=== PATIENT | female | born 1970 | race Caucasian/White ===

== ENCOUNTER 2020-06-26 17:59 | Emergency (ER) | payer MEDICARE, OTHER ==
[~2020-06-26] VITALS: Ht 157.5 cm; Wt 67.9 kg
[2020-06-26] MEDS ORDERED: DEXAMETHASONE SOD PHOS 4 MG/ML VIAL. IVP ONE (18:45)
[2020-06-26] MEDS ORDERED: IV NORMAL SALINE 1,000ML 1,000 ML IV ONE (18:45)
[2020-06-26 19:10] LABS: BASO % 1 % (0-3); EOS # 0.1 x10^3/uL (0.0-0.7); EOS % 2 % (0-3); HEMOGLOBIN 13.4 g/dL (12.0-15.5); LYMPH # 1.4 x10^3/uL (1.0-4.8); LYMPH % 48 % (24-48); MEAN CORPUSCULAR HEMOGLOBIN 31 pg (25-35); MEAN CORPUSCULAR HGB CONC 34 g/dL (31-37); MEAN CORPUSCULAR VOLUME 92 fL (79-100); MONO # 0.3 x10^3/uL (0.0-1.1); MONO % 11 % (0-9); NEUT # 1.1 x10^3uL (1.8-7.7); NEUT % 38 % (31-73); PLATELET COUNT 134 x10^3/uL (140-400); RED BLOOD COUNT 4.34 x10^6/uL (3.50-5.40); RED CELL DISTRIBUTION WIDTH 12.8 % (11.5-14.5); WHITE BLOOD COUNT 2.9 x10^3/uL (4.0-11.0)
[2020-06-26 19:19] LABS: ANION GAP 9 (6-14); BLOOD UREA NITROGEN 22 mg/dL (7-20); BUN/CREATININE RATIO 18 (6-20); CALCIUM 8.3 mg/dL (8.5-10.1); CARBON DIOXIDE 26 mmol/L (21-32); CHLORIDE 106 mmol/L (98-107); CREATININE 1.2 mg/dL (0.6-1.0); GFR 47.9; GLUCOSE 90 mg/dL (70-99); POTASSIUM 3.8 mmol/L (3.5-5.1); SODIUM 141 mmol/L (136-145)
[2020-06-26 19:30] LABS: ALBUMIN 3.4 g/dL (3.4-5.0); ALBUMIN/GLOBULIN RATIO 1.1 (1.0-1.7); ALK PHOS 72 U/L (46-116); ALT (SGPT) 23 U/L (14-59); AST (SGOT) 19 U/L (15-37); MAGNESIUM 2.1 mg/dL (1.8-2.4); TOTAL BILIRUBIN 0.1 mg/dL (0.2-1.0); TOTAL PROTEIN 6.4 g/dL (6.4-8.2)
[2020-06-26] MEDS ORDERED: IOHEXOL 350 MG/ML 100 ML VIAL. IV ONE (20:00)
--- NOTE | 2020-06-26 21:37 | RAD ---
Examination: Ultrasound left upper extremity venous duplex HISTORY: History of elevated d-dimer, paresthesias COMPARISON: None available TECHNIQUE: Grayscale, color Doppler 2-D, spectral waveforms of the left upper extremity venous system were performed FINDINGS: The visualized left internal jugular vein, subclavian vein, axillary vein, basilic vein, cephalic vein, brachial vein, radial, ulnar veins are patent. IMPRESSION: No evidence of deep venous thrombosis left upper extremity venous system. Electronically signed by: Thaddeus Hernandez MD (06/26/2020 9:34 PM) [id number]
--- NOTE | 2020-06-26 21:39 | RAD ---
Examination: Right Lower Extremity Venous Doppler Ultrasound History: Elevated d-dimer, paresthesias Comparison: None available Procedure: Barnett scale, color flow 2D and spectal waveform analysis images are obtained with and without compression in the area of the common femoral vein, superficial femoral vein - femoral vein junction, main femoral vein (superficial femoral vein) and popliteal vein. Veins of the proximal calf are also imaged. Findings: There is normal duplex flow, color flow and compressibility of all visualized vein segments. No evidence of deep venous thrombus is present. Impression: No evidence of DVT in the right lower extremity venous system. Electronically signed by: Thaddeus Hernandez MD (06/26/2020 9:36 PM) [id number]
--- NOTE | 2020-06-26 21:42 | PHYS DOC ---
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 Past Surgical History: Hysterectomy, Other Additional Past Surgical Histo: ULCER SUREGY WITH LAP Alcohol Use: Occasionally General Adult EDM: Chief Complaint: MULTIPLE COMPLAINTS HPI: HPI: Patient is a [age] year old [sex] who presents with [] Review of Systems: Review of Systems: Constitutional: Denies fever or chills Eyes: Denies redness or eye pain HENT: Denies nasal congestion or sore throat Respiratory: Denies cough or shortness of breath Cardiovascular: Denies chest pain or palpitations GI: Denies abdominal pain, nausea, or vomiting : Denies dysuria or hematuria Musculoskeletal: Denies back pain or joint pain Integument: Denies rash or skin lesions Neurologic: Denies headache, focal weakness or sensory changes Complete systems were reviewed and found to be within normal limits, except as documented in this note. Current Medications: Current Meds: Current Medications Medications (Trade) Dose Ordered Sig/Sallie Start Time Stop Time Status Last Admin Dose Admin Dexamethasone Sodium Phosphate (Decadron) 10 mg 1X ONCE 06/26/20 18:45 06/26/20 18:49 DC 06/26/20 19:45 10 MG Iohexol (Omnipaque 350 Mg/ml) 100 ml 1X ONCE 06/26/20 20:00 06/26/20 20:07 DC 06/26/20 21:33 100 ML Sodium Chloride 1,000 ml @ 1,000 mls/hr 1X ONCE 06/26/20 18:45 06/26/20 19:44 DC 06/26/20 19:39 1,000 MLS/HR Allergies: Allergies: Allergies Coded Allergies Type Severity Reaction Last Updated Verified No Known Drug Allergies 06/26/20 No Physical Exam: PE: Constitutional: Well developed, well nourished, no acute distress, non-toxic appearance HENT: Normocephalic, atraumatic Eyes: PERRL, EOMI, conjunctiva normal, no discharge Neck: Normal range of motion, no tenderness, supple Lungs & Thorax: No respiratory distress, equal chest rise and fall Abdomen: Soft, no tenderness Skin: Warm, dry, no erythema, no rash Back: No tenderness, no CVA tenderness Extremities: No tenderness, ROM intact, no edema Neurologic: Alert and oriented X 3, normal motor function, normal sensory function, no focal deficits noted Psychologic: Affect normal, judgment normal Current Patient Data: Labs: Laboratory Tests Test 06/26/20 18:40 White Blood Count 2.9 x10^3/uL (4.0-11.0) L Red Blood Count 4.34 x10^6/uL (3.50-5.40) Hemoglobin 13.4 g/dL (12.0-15.5) Hematocrit 40.0 % (36.0-47.0) Mean Corpuscular Volume 92 fL (79-100) Mean Corpuscular Hemoglobin 31 pg (25-35) Mean Corpuscular Hemoglobin Concent 34 g/dL (31-37) Red Cell Distribution Width 12.8 % (11.5-14.5) Platelet Count 134 x10^3/uL (140-400) L Neutrophils (%) (Auto) 38 % (31-73) Lymphocytes (%) (Auto) 48 % (24-48) Monocytes (%) (Auto) 11 % (0-9) H Eosinophils (%) (Auto) 2 % (0-3) Basophils (%) (Auto) 1 % (0-3) Neutrophils # (Auto) 1.1 x10^3uL (1.8-7.7) L Lymphocytes # (Auto) 1.4 x10^3/uL (1.0-4.8) Monocytes # (Auto) 0.3 x10^3/uL (0.0-1.1) Eosinophils # (Auto) 0.1 x10^3/uL (0.0-0.7) Basophils # (Auto) 0.0 x10^3/uL (0.0-0.2) Prothrombin Time 10.1 SEC (9.4-11.4) Prothrombin Time INR 1.0 (0.9-1.1) Activated Partial Thromboplast Time 26 SEC (23-33) D-Dimer (Vanessa) 0.54 mg/L (0.00-0.50) H Sodium Level 141 mmol/L (136-145) Potassium Level 3.8 mmol/L (3.5-5.1) Chloride Level 106 mmol/L (98-107) Carbon Dioxide Level 26 mmol/L (21-32) Anion Gap 9 (6-14) Blood Urea Nitrogen 22 mg/dL (7-20) H Creatinine 1.2 mg/dL (0.6-1.0) H Estimated GFR (Cockcroft-Gault) 47.9 BUN/Creatinine Ratio 18 (6-20) Glucose Level 90 mg/dL (70-99) Calcium Level 8.3 mg/dL (8.5-10.1) L Magnesium Level 2.1 mg/dL (1.8-2.4) Total Bilirubin 0.1 mg/dL (0.2-1.0) L Aspartate Amino Transferase (AST) 19 U/L (15-37) Alanine Aminotransferase (ALT) 23 U/L (14-59) Alkaline Phosphatase 72 U/L (46-116) Creatine Kinase 67 U/L (26-192) Creatine Kinase MB (Mass) 0.6 ng/mL (0.0-3.6) Creatine Kinase MB Relative Index % (0-4) Troponin I Quantitative < 0.017 ng/mL (0-0.055) Total Protein 6.4 g/dL (6.4-8.2) Albumin 3.4 g/dL (3.4-5.0) Albumin/Globulin Ratio 1.1 (1.0-1.7) Vital Signs: Vital Signs Date Time Temp Pulse Resp B/P (MAP) Pulse Ox O2 Delivery O2 Flow Rate FiO2 06/26/20 18:00 98.4 70 18 122/73 (89) 99 Room Air EKG: EKG: @1957 Sinus bradycardia at 58bpm, NO ST elevation, QRS 88ms, QT/QTc 434/430ms, nonspecific t wave inversion V3. Radiology/Procedures: Radiology/Procedures: PROCEDURE: VENOUS UPPER EXTREMITY LEFT Examination: Ultrasound left upper extremity venous duplex HISTORY: History of elevated d-dimer, paresthesias COMPARISON: None available TECHNIQUE: Grayscale, color Doppler 2-D, spectral waveforms of the left upper extremity venous system were performed FINDINGS: The visualized left internal jugular vein, subclavian vein, axillary vein, basilic vein, cephalic vein, brachial vein, radial, ulnar veins are patent. IMPRESSION: No evidence of deep venous thrombosis left upper extremity venous system. Electronically signed by: Thaddeus Hernandez MD (06/26/2020 9:34 PM) [id number] PROCEDURE: VENOUS LOWER EXTREMITY RIGHT Examination: Right Lower Extremity Venous Doppler Ultrasound History: Elevated d-dimer, paresthesias Comparison: None available Procedure: Barnett scale, color flow 2D and spectal waveform analysis images are obtained with and without compression in the area of the common femoral vein, superficial femoral vein - femoral vein junction, main femoral vein (superficial femoral vein) and popliteal vein. Veins of the proximal calf are also imaged. Findings: There is normal duplex flow, color flow and compressibility of all visualized vein segments. No evidence of deep venous thrombus is present. Impression: No evidence of DVT in the right lower extremity venous system. Electronically signed by: Thaddeus Hernandez MD (06/26/2020 9:36 PM) [id number] PROCEDURE: CT ANGIOGRAPHY CHEST Examination: CT angiography chest HISTORY: History of shortness of breath, elevated d-dimer COMPARISON: None available TECHNIQUE: Axial CT angiographic images of chest were performed with IV contrast. Coronal and sagittal reformats are performed Exposure: One or more of the following individualized dose reduction techniques were utilized for this examination: 1. Automated exposure control 2. Adjustment of the mA and/or kV according to patient size 3. Use of iterative reconstruction technique FINDINGS: The central airways are patent. The heart size grossly appears unremarkable. The ascending aorta measures 3.5 cm in transverse dimension. There is no evidence of filling defect identified in the main pulmonary arteries and the right and left main pulmonary arteries and the visualized lobar, segmental branches of the pulmonary arteries. Mild bibasilar lung airspace opacities likely atelectasis or infiltrates. The visualized liver, spleen, grossly appears unremarkable. Mild degenerative changes thoracic spine. IMPRESSION: 1. No evidence of pulmonary embolism. 2. Mild bibasilar lung atelectasis or infiltrates. Electronically signed by: Thaddeus Hernandez MD (06/26/2020 10:07 PM) [email or web address] Course & Med Decision Making: Course & Med Decision Making Pertinent Labs and Imaging studies reviewed. (See chart for details) Patient stable for discharge with outpatient follow-up with PCP/pain management. Discussed findings and plan with patient, who acknowledges understanding and agreement. COVID-19 CRITERIA: The patient was evaluated during the global COVID-19 pandemic, and that diagnosis was suspected/considered upon their initial presentation. Their evaluation, treatment and testing was consistent with current guidelines for patients who present with complaints or symptoms that may be related to COVID-19. Dragon Disclaimer: Dragon Disclaimer: This electronic medical record was generated, in whole or in part, using a voice recognition dictation system. Departure Departure: Impression: Primary Impression: Arm paresthesia, left Additional Impressions: Paresthesia of right leg COVID-19 Disposition: 01 DC HOME SELF CARE/HOMELESS Condition: STABLE Referrals: PCP,NO (PCP) Patient Instructions: Paresthesia, [id number] Additional Instructions: Please follow with your doctor and/or it desktop support specialist for further evaluation and treatment. Dr. Elvis Xiong (pain management) Address: [address] [place] [address] [place] [address] You have been tested for or diagnosed with COVID-19. It is an infection caused by a new type of coronavirus. COVID-19 will cause cold-like or mild flu symptoms in most. It can cause more severe symptoms like problems breathing in some. There is no treatment for COVID-19. The body will clear the infection over time. Self-care will help to ease discomfort. Steps to Take: Self-Care Rest as needed. Healthy habits may help you feel better. Steps include: Choose healthy foods including fruits and vegetables. Drink water throughout the day. Get plenty of sleep each night. If you smoke, try to quit. It may ease breathing. Avoid alcohol. Keep Others Healthy The virus can spread to others. Droplets are released every time you sneeze or cough. The droplets can get into the mouth, nose, or eyes of people near you and lead to infection. To lower the chances of spreading COVID-19 to others: Stay at home until your doctor has said it is safe to leave. If you tested positive this will mean staying isolated until both of the following are true: At least 7 days have passed since the start of illness. You are free of fever for at least 72 hours without the use of medicine. During this time: - Avoid public areas, events, or transportation. Do not return to work or school until your doctor has said it is safe to do so. - Call ahead if you need to go to a medical center. Let them know you may have COVID-19. It will help them guide you where to go. They may also ask you to wear a facemask when you come to the office. - If you call for emergency medical services, let them know you may have COVID- 19. While at home: - Try to avoid close contact with others. Stay about 6 feet away. - If possible, spend most of your time in a separate room from others. - Use a face mask if you will be in close contact with others such as sharing a room or vehicle. - Have someone wipe down common surfaces in the home. Use household associate account executive every day on areas like doorknobs, counters, or sinks. - Cough or sneeze into a tissue. Throw the tissue away right after use. If a tissue is not available, cough or sneeze into your elbow. - Wash your hands often. Wash them after sneezing or coughing. Use soap and water and wash for at least 20 seconds. Alcohol based hand delta system freight car cleaner can be used if soap and water is not available. - Do not prepare food for others. Avoid sharing personal items like forks, spoons, or toothbrushes. - Avoid close contact with pets while you are sick. There is no evidence of the virus passing to pets. This is a safety step until more is known about this virus. Isolation can be frustrating. Social interaction can help. Keep in touch with friends and family through phone and tech options. You can still interact with others in you r home, just keep a safe distance of about 6 feet. Follow-up: Your doctors office will check in with you to see if there are any changes in your health. You may be asked to keep track of symptoms to share with them. They will also let you know when you are clear to be in public again. Problems to Look Out For: Contact your doctor if your recovery is not going as you expect. Get emergency care if you have problems such as: - Trouble breathing - Nonstop chest pain or pressure - Changes in awareness, confusion, or problems waking - Lips or face have bluish color - Worsening of symptoms If you think you have an emergency, call for emergency medical services right away. As taken from [facility] Orphenadrine Citrate (ORPHENADRINE CITRATE) 100 Mg Tablet.er 1 TAB PO BID PRN for MUSCLE PAIN, #14 TAB 0 Refills Prov: MARLON SAHNI DO 06/26/20 COVID-19 Assessment COVID-19 Patient Risks: Age 65 or older: No Sign of co-morbidity: No Exp to person + for COVID: Yes Exp to PUI: No Travel from affected area: No Lower respiratory symptoms: No Fever: No Other: Yes PPE Use: Full PPE with N95 mask or PAPR: Yes MARLON SAHNI DO Jun 26, 2020 21:42
[2020-06-26] MEDS ORDERED: ORPH-16 PO (21:46)
--- NOTE | 2020-06-26 22:10 | RAD ---
Examination: CT angiography chest HISTORY: History of shortness of breath, elevated d-dimer COMPARISON: None available TECHNIQUE: Axial CT angiographic images of chest were performed with IV contrast. Coronal and sagittal reformats are performed Exposure: One or more of the following individualized dose reduction techniques were utilized for this examination: 1. Automated exposure control 2. Adjustment of the mA and/or kV according to patient size 3. Use of iterative reconstruction technique FINDINGS: The central airways are patent. The heart size grossly appears unremarkable. The ascending aorta measures 3.5 cm in transverse dimension. There is no evidence of filling defect identified in the main pulmonary arteries and the right and left main pulmonary arteries and the visualized lobar, segmental branches of the pulmonary arteries. Mild bibasilar lung airspace opacities likely atelectasis or infiltrates. The visualized liver, spleen, grossly appears unremarkable. Mild degenerative changes thoracic spine. IMPRESSION: 1. No evidence of pulmonary embolism. 2. Mild bibasilar lung atelectasis or infiltrates. Electronically signed by: Thaddeus Hernandez MD (06/26/2020 10:07 PM) [id number]
[2020-06-26 22:35] VITALS: BP 105/75
--- NOTE | 2020-06-27 02:36 | EKG ---
[address] [address] Test Date: 2020-06-26 Test Time: 20:22:06 Pat Name: EVERARDO MOORE Department: Room: Gender: F Master Baker: CARMINA : 1970 Requested By: MARLON SAHNI Order Number: [id number] Reading MD: Edin Clayton Measurements Intervals [place] Rate: 87 P: 0 OR: 206 QRS: 61 QRSD: 78 T: 56 QT: 358 QTc: 431 Interpretive Statements SINUS RHYTHM Electronically Signed On 06-27-2020 18:24:22 METAL BUMPER by Edin Clayton
--- NOTE | 2020-06-27 11:50 | EKG ---
[address] [address] Test Date: 2020-06-26 Test Time: 19:57:17 Pat Name: ARACELI MOORE Department: Room: Gender: F Concert Pianist: : 1970 Requested By: MARLON SAHNI Order Number: [id number] Reading MD: Edin Clayton Measurements Intervals [place] Rate: 58 P: 41 OK: 154 QRS: -4 QRSD: 88 T: 11 QT: 434 QTc: 430 Interpretive Statements SINUS RHYTHM Electronically Signed On 06-27-2020 18:24:03 POPCORN ATTENDANT by Edin Clayton
== END 2020-06-26 22:35 | disposition home or self-care (01) ==
LOC: ER 17:59
DX: U07.1 COVID-19 (principal); R20.2 Paresthesia of skin
CPT/HCPCS: 36415; 71275; 80053; 82553; 83735; 84484; 85025; 85379; 85610; 85730; 93005; 93971; 96361; 96374; 99285; J1100; J7030; Q9967